=== PATIENT | male | born 1965 | race Hispanic/Latino ===

== ENCOUNTER 2023-05-15 15:13 | Emergency (ER) | payer BC, OTHER | END 2023-05-15 15:46 | disposition left against medical advice (07) | LOC: EDH 15:13 | DX: T14.8XXA Other injury of unspecified body region, initial encounter (principal); Z53.21 Procedure and treatment not carried out due to patient leaving prior to being seen by health care provider; X58.XXXA Exposure to other specified factors, initial encounter; Y93.89 Activity, other specified; Y92.89 Other specified places as the place of occurrence of the external cause; Y99.8 Other external cause status ==